=== PATIENT | male | born 1990 | race Caucasian/White ===

== ENCOUNTER 2019-01-12 12:16 | Emergency (ER) | payer SELFPAY ==
[2019-01-12] MEDS: FLUORESCEIN STRIP LEFT EYE (14:26)
[2019-01-12] MEDS: TETRACAINE 0.5% 4 ML OPH LEFT EYE (14:26)
== END 2019-01-12 15:00 | disposition home or self-care (01) ==
LOC: FTE 15:00
DX: S05.02XA Injury of conjunctiva and corneal abrasion without foreign body, left eye, initial encounter (principal); X58.XXXA Exposure to other specified factors, initial encounter; Y92.9 Unspecified place or not applicable
CPT/HCPCS: 99283